=== PATIENT | male | born 1975 | race Caucasian/White ===

== ENCOUNTER 2022-01-09 14:32 | Emergency (ER) | payer SELFPAY ==
[2022-01-09 19:20] VITALS: BP 0/0; PULSE 0; RESP 0; TEMP -17.7; TEMP 0
--- NOTE | 2022-01-12 09:05 | HMH.EDGENADL ---
Discharge Plan Disposition Patient Disposition: Left Without Being Seen Clinical Impressions Clinical Impression: Patient left without being seen Discharge ED Provider: Reyes Delgadillo General Adult HPI General Stated complaint: Congestion, cough, pain with deep breathing Related Data Previous Rx's Medication Instructions Recorded naproxen 500 mg tablet 500 mg PO Q12H PRN Mild To 03/07/19 Moderate Pain 30 days #60 tabs Allergies Allergy/AdvReac Type Severity Reaction Status Date / Time codeine Allergy Verified 03/07/19 12:20 hydromorphone [From Dilaudid] Allergy Verified 03/07/19 12:20 PFSH PFSH Social History alcohol intake: never current occupational status: other Travel in the last 8 weeks: None Medical Decision Making Vital Signs: 01/09/22 19:20 Temperature 0 F L Pulse Rate 0 L Respiratory Rate 0 L Blood Pressure 0/0 L Critical Care Time Critical Care Time Attestation: The high probability of a clinically significant, sudden or life threatening deterioration of the [] system(s) required my full and direct attention, intervention and personal management. The aggregate critical care time was [] minutes. This time is in addition to time spent performing reported procedures but includes the following: [] Data Review and interpretation [] Patient assessment and monitoring of vital signs [] Documentation [] Medication orders and management
== END 2022-01-09 19:21 | disposition left against medical advice (07) ==
PROVIDERS: Emergency Provider Emergency Medicine; PCP Family Medicine
DX: R05.9 Cough, unspecified (principal); R09.81 Nasal congestion; Z53.21 Procedure and treatment not carried out due to patient leaving prior to being seen by health care provider

== ENCOUNTER 2022-01-23 07:08 | Emergency (ER) | payer SELFPAY ==
[2022-01-23 07:09] VITALS: BP 181/107; PULSE 81; RESP 20; TEMP 37.1; O2SAT 98; BMI 48.5
--- NOTE | 2022-01-23 07:24 | XR_ITS ---
FINAL REPORT CLINICAL HISTORY: cough sob FINDINGS: 2 views of the chest were obtained . The heart is normal in size. The mediastinum is within normal limits. Mild left base opacities are seen, favor atelectasis. There is no pneumothorax. Osseous structures demonstrate moderate degenerative changes with osteophytes of the thoracic spine. IMPRESSION: Mild left base opacity, favor atelectasis. Reviewed, Interpreted and Dictated by Fareed Cadet III, MD Transcribed by Georgia Avendaño Authenticated and [facility]
[2022-01-23 07:29] LABS: Coronavirus 19, PCR Not Detected (NotDetected); Influenza A, PCR Not Detected (NotDetected); Influenza B, PCR Not Detected (NotDetected)
[2022-01-23 07:30] VITALS: BP 189/93; PULSE 74; RESP 22; O2SAT 99
--- NOTE | 2022-01-23 08:11 | HMH.EDGENADL ---
Discharge Plan Disposition Patient Disposition: Home, Self-Care Condition: Good Prescriptions Prescriptions: New amoxicillin-pot clavulanate 875-125 mg tablet 1 tab PO BID 5 Days Qty: 10 0RF azithromycin 500 mg tablet 500 mg PO DAILY 3 Days Qty: 3 0RF No Action atorvastatin 20 mg Tablet 20 mg PO HS bupropion HCl [Wellbutrin] 100 mg Tablet 100 mg PO BID amlodipine [Norvasc] 10 mg Tablet 10 mg PO DAILY fluoxetine 20 mg Tablet 20 mg PO DAILY hydrochlorothiazide 25 mg Tablet 25 mg PO DAILY losartan 100 mg Tablet 100 mg PO DAILY buspirone [BuSpar] 15 mg Tablet 15 mg PO BID aripiprazole 10 mg Tablet 10 mg PO HS aripiprazole 10 mg Tablet 10 mg PO HS Referrals Follow up/Referrals: Medina Harvey [Primary Care Provider] - See instructions Activity Restrictions/Add. Instructions Additional Instructions/Restrictions: Follow-up with your primary care doctor regarding this visit to the emergency department as needed. Continue take albuterol 2 puffs every 2 hours for the next 48 hours while awake to improve shortness of breath and bronchitis symptoms. If you have any other concerning signs or symptoms, return to your primary care doctor or the emergency department for further evaluation. Clinical Impressions Clinical Impression: Asthma with exacerbation Qualifiers: Asthma severity: mild Asthma persistence: intermittent Qualified Code(s): J45.21 - Mild intermittent asthma with (acute) exacerbation Community acquired pneumonia Qualifiers: Laterality: left Lung location: lower lobe of lung Qualified Code(s): J18.9 - Pneumonia, unspecified organism Instructions Patient Instructions: DI for Asthma -- Adult Discharge ED Provider: Reyes Delgadillo General Adult HPI General Chief complaint: Shortness of Breath/Dyspnea Stated complaint: SOA, Cough Time Seen by Provider: 01/23/22 08:00 Mode of Arrival: Ambulatory Source of Information: Patient Limitations: No Limitations Description of Symptoms (Recalled from ER Triage Doc. by RN): to ed per pvt car with c/o sob, cough starting lastnight. pt states same symptoms 2 weeks ago and finished course of antibiotics and sterorids. pt states he has been unable to afford his breo and now his asthma is getting worse. History of Present Illness HPI narrative: This is a 46-year-old male with history of asthma who is presenting with asthma exacerbation. Patient states that he was diagnosed with bronchitis approximately 3 weeks ago, since that time, he has continued to cough. He woke up around 2 AM approximately 6 hours prior to arrival with severe asthma exacerbation refractory to 4 puffs of albuterol total. Patient states that he took 2 puffs, felt mild and intermittent relief, then approximately 30 minutes later took 2 more puffs. Because of that and feeling short of breath, he came to the ED for further evaluation. He has had associated cough productive of yellow sputum, but denies hemoptysis, hematemesis, fevers, chills, confusion, cyanosis or pallor, chest pain, abdominal pain, nausea, vomiting, diaphoresis. Also denies PND, orthopnea, lower extremity swelling, or any other concerning history. Related Data Home Medications Medication Instructions Recorded Confirmed amlodipine 10 mg tablet (Norvasc) 10 mg PO DAILY High blood pressure 01/23/22 01/23/22 aripiprazole 10 mg tablet 10 mg PO HS Anxiety 01/23/22 01/23/22 aripiprazole 10 mg tablet 10 mg PO HS sleep 01/23/22 01/23/22 atorvastatin 20 mg tablet 20 mg PO HS Cholesterol 01/23/22 01/23/22 bupropion HCl 100 mg tablet 100 mg PO BID Depression 01/23/22 01/23/22 buspirone 15 mg tablet 15 mg PO BID Anxiety 01/23/22 01/23/22 fluoxetine 20 mg tablet 20 mg PO DAILY Depression 01/23/22 01/23/22 hydrochlorothiazide 25 mg tablet 25 mg PO DAILY High blood pressure 01/23/22 01/23/22 losartan 100 mg tablet 100 mg PO DAILY High blood pressure 01/23/22 01/23/22 Previous Rx's
--- NOTE | 2022-01-23 08:34 | ECG_ITS ---
APPROVED REPORT Exam: Resting ECG HR:69 bpm ECG Measurements Heart Rate 69 AXES RI 151 P 25 QRSd 143 QRS 3 QT 420 T 9 QTc 440 Conclusion SINUS RHYTHM INTRAVENTRICULAR CONDUCTION DELAY [130+ ms QRS DURATION] ABNORMAL ECG UNCONFIRMED REPORT Electronically signed by : Jhonny Spencer MD 01/23/2022 22:35:04
--- NOTE | 2022-01-23 08:55 | PC.NURSE ---
pt resting quietly
[2022-01-23 09:00] VITALS: BP 169/98; PULSE 73; RESP 18; O2SAT 100
[2022-01-23 10:07] VITALS: BP 177/88; PULSE 87; RESP 20; TEMP 36.6; O2SAT 98
== END 2022-01-23 10:09 | disposition home or self-care (01) ==
PROVIDERS: Emergency Medicine; Emergency Provider Emergency Medicine; PCP Family Medicine
DX: J45.21 Mild intermittent asthma with (acute) exacerbation (principal); J18.9 Pneumonia, unspecified organism; Z20.822 Contact with and (suspected) exposure to COVID-19
CPT/HCPCS: 71046; 93005; 99284; C9803; U0003; U0005